=== PATIENT | female | born 1995 | race African-American/Black ===

== ENCOUNTER 2017-11-01 20:23 | Emergency (ER) | payer OTHER ==
[~2017-11-01] VITALS: Ht 160 cm; Wt 56.8 kg
[2017-11-01] MEDS ORDERED: PRENATAL PO (20:53)
[2017-11-01] MEDS ORDERED: IRON325 PO (20:54)
[2017-11-01 23:19] LABS: URINE BILIRUBIN NEGATIVE (Negative); URINE BLOOD NEGATIVE (Negative); URINE CLARITY CLEAR; URINE COLOR YELLOW; URINE GLUCOSE-RANDOM* NEGATIVE (Negative); URINE KETONES NEGATIVE (Negative); URINE LEUKOCYTES-REFLEX NEGATIVE (Negative); URINE NITRITE-REFLEX NEGATIVE (Negative); URINE PROTEIN (DIPSTICK) NEGATIVE (Negative); URINE UROBILINOGEN 0.2 E.U./dl (0.2-1.0)
[2017-11-01 23:51] VITALS: BP 128/86
== END 2017-11-01 23:55 | disposition home or self-care (01) ==
LOC: ER 20:23
PROVIDERS: Emergency Medicine
DX: O47.02 False labor before 37 completed weeks of gestation, second trimester (principal); Z3A.20 20 weeks gestation of pregnancy